=== PATIENT | male | born 1985 ===

== ENCOUNTER 2018-05-08 08:48 | Emergency (ER) | payer SELFPAY ==
[2018-05-08 08:52] VITALS: BMI 31.3
[2018-05-08 08:53] VITALS: BP 117/76; PULSE 79; RESP 16; TEMP 97.9; O2SAT 98
--- NOTE | 2018-05-08 09:18 | C.PDOC ---
History Of Present Illness 32 y/o male c/o left knee pain x 2 weeks with no preceding trauma or injury. pt take 2 tylenol 2 times a day with no relief. no fever. no numbness or tingling. Time Seen by Provider: 05/08/18 08:57 Chief Complaint (Nursing): Lower Extremity Problem/Injury History Per: Patient History/Exam Limitations: no limitations Onset/Duration Of Symptoms: Days (14) Current Symptoms Are (Timing): Still Present Severity: Moderate Past Medical History Reviewed: Historical Data, Nursing Documentation, Vital Signs Vital Signs: Last Vital Signs Temp 97.9 F 05/08/18 08:52 Pulse 79 05/08/18 08:52 Resp 16 05/08/18 08:52 BP 117/76 05/08/18 08:52 Pulse Ox 98 05/08/18 08:52 - Medical History PMH: No Chronic Diseases Family History: States: Unknown Family Hx - Social History Hx Alcohol Use: No Hx Substance Use: No - Immunization History Hx Tetanus Toxoid Vaccination: No Hx Influenza Vaccination: No Hx Pneumococcal Vaccination: No Review Of Systems Constitutional: Negative for: Fever, Chills Respiratory: Negative for: Cough Gastrointestinal: Negative for: Abdominal Pain Musculoskeletal: Positive for: Other (left knee pain) Skin: Negative for: Rash, Bruising Neurological: Negative for: Weakness, Numbness Physical Exam - Physical Exam Appears: Non-toxic, No Acute Distress Skin: Warm, Dry Head: Atraumatic, Normacephalic Extremity: Normal ROM, Tenderness (left lateral and posterior knee, no swelling or effusion noted, no warmth or erythema noted. ), No Pedal Edema, No Calf Tenderness, Capillary Refill (less than 2 seconds), No Deformity, No Swelling, Other Pulses: Left Dorsalis Pedis: Normal, Right Dorsalis Pedis: Normal Neurological/Psych: Oriented x3, Normal Speech, Normal Cognition, Normal Motor, Normal Sensation ED Course And Treatment O2 Sat by Pulse Oximetry: 98 Medical Decision Making Medical Decision Making: left knee pain x 2 weeks- nsaids and marilu bandage, f/u ortho clinic. Disposition Counseled Patient/Family Regarding: Diagnosis, Need For Followup - Disposition Referrals: [facility] [Outside] Disposition: HOME/ ROUTINE Disposition Time: 09:21 Condition: GOOD Additional Instructions: Use un vendaje charlie el da para apoyar la [place]. [place] naproxeno (con alimentos) segn lo prescrito. Llame a la clnica de [place] y pida [place] arthur con ortopedia. Compresas fras en la rodilla varias veces al da para aliviar el dolor, sobre [place] ilya delgada. Wear marilu bandage during daytime for support to left knee., Take naproxen (with food) as prescribed. Call [facility] and ask for an appointment with orthopedics. Cold compresses to knee several times a day to help with pain, over a thin cloth. Prescriptions: Naproxen 500 mg PO BID #20 tab Instructions: Knee Pain (DC) Forms: Gen Discharge Inst Serbian, [facility] (Serbian), Work Excuse Print Language: ARMENIAN - Clinical Impression Clinical Impression: Left knee pain
== END 2018-05-08 09:42 | disposition home or self-care (01) ==
LOC: C.ER 08:48
DX: M25.562 Pain in left knee (principal)
CPT/HCPCS: 96372; 99285; J1885